=== PATIENT | female | born 1980 | race Caucasian/White ===

== ENCOUNTER 2021-04-10 16:27 | Outpatient (CLI) | payer BC | END 2021-04-10 16:28 | disposition home or self-care (01) | LOC: COV 16:27 | PROVIDERS: ATTEND Family Medicine | DX: R53.83 Other fatigue (principal); R07.0 Pain in throat; R19.7 Diarrhea, unspecified; R09.81 Nasal congestion; J34.89 Other specified disorders of nose and nasal sinuses; Z20.822 Contact with and (suspected) exposure to COVID-19 ==

== ENCOUNTER 2021-06-21 09:22 | Outpatient (CLI) | payer BC ==
--- NOTE | 2021-06-21 17:49 | Ultrasound Report ---
PROCEDURE: Pelvic w/Transvaginal INDICATIONS: CHECKING OF IUD TECHNIQUE: Real-time scanning was performed of the pelvic organs, with image documentation. Additional endovagi nal scanning was necessary due to incomplete visualization of the adnexal and endometrial structures by transabdominal scanning. COMPARISON: None. FINDINGS: No pathologic free abdominal or pelvic fluid. Uterus: Uterus is anteverted and measures 9.0 x 4.8 x 6.2 cm. The endometrium measures approximately 0.4 cm in combined thickness. An IUD appears in appropriate position, extending into the fundal endo metrium. Ovaries: The right ovary measures 2.3 x 1.3 x 2.2 cm for a calculated volume of 3.4 mL. The left ova ry measures 5.4 x 3.7 x 4.6 cm with calculated volume of 4.6 mL. There are 2 cysts within the left ov myra, measuring 4.5 x 2.7 x 3.7 cm and 2.7 x 1.8 x 2.8 cm. These demonstrate internal septations and t hickened walters. No internal vascularity on color Doppler interrogation. IMPRESSION: 1. IUD appears in appropriate position extending into the fundal endometrium. 2. Complex cyst demonstrated within the left ovary as described. Given their size and internal septat ions, consider follow-up ultrasound in 6 weeks to demonstrate resolution. Reviewed by: Dave Benton MD on 06/21/2021 4:48 PM [facility] Approved by: Dave Benton MD on 06/21/2021 4:48 PM [facility] Station ID: [id number]
== END 2021-06-21 09:23 | disposition home or self-care (01) ==
LOC: DI 09:22
PROVIDERS: ATTEND Nurse Practitioner Obstetrics & Gynecology
DX: Z30.431 Encounter for routine checking of intrauterine contraceptive device (principal); N83.292 Other ovarian cyst, left side

== ENCOUNTER 2021-10-06 16:15 | Outpatient (CLI) | payer BC ==
--- NOTE | 2021-10-07 09:35 | Ultrasound Report ---
PROCEDURE: Pelvic w/Transvaginal INDICATIONS: OVARIAN CYST TECHNIQUE: Real-time scanning was performed of the pelvic organs, with image documentation. Additional endovagi nal scanning was necessary due to incomplete visualization of the adnexal and endometrial structures by transabdominal scanning. COMPARISON: June 21, 2021 FINDINGS: UTERUS: Anteverted, heterogeneous echotexture, and measures 9.1 x 4.9 x 5.7 cm. The endometrial thickness measures 5.1 mm. Intrauterine device is seen in situ. RIGHT OVARY: 3.6 x 1.8 x 2.1 cm. Vol: 7 mL. Color-flow projects over the ovarian tissue. Hypoechoic l esion, measuring up to 1.7 cm, most consistent with a hemorrhagic cyst. LEFT OVARY: 3.4 x 1.8 x 2.2 cm. Vol: 6.9 mL. Color-flow projects over the ovarian tissue. Echogenic f ocus, measuring up to 5.1 mm, compatible with calcification. OTHER: None. IMPRESSION: 1.IUD in expected location. Reviewed by: Arthur Tan MD on 10/07/2021 9:33 AM PDT Approved by: Arthur Tan MD on 10/07/2021 9:33 AM PDT Station ID: [id number]
== END 2021-10-06 16:16 | disposition home or self-care (01) ==
LOC: DI 16:15
PROVIDERS: ATTEND Obstetrics & Gynecology
DX: N83.209 Unspecified ovarian cyst, unspecified side (principal); Z97.5 Presence of (intrauterine) contraceptive device